=== PATIENT | male | born 1945 | race Caucasian/White ===

== ENCOUNTER 2022-02-07 12:04 | Inpatient (IN) | payer MEDICARE, BC, SELFPAY ==
[2022-02-07] VITALS (9 sets, daily range): BP systolic 128–137; BP diastolic 57–113; PULSE 70–78; RESP 17–26; TEMP 37.2–37.4; O2SAT 95–100; BMI 32.8; BMI 28.8
--- NOTE | 2022-02-07 12:08 | CT_ITS ---
STUDY: CT BRAIN WITHOUT CONTRAST REASON FOR EXAM: Male, 76 years old. mental status [facility] RADIATION DOSAGE (If Supplied By Facility): CTDIvol = ( 44.99 ) mGy, DLP = ( 863.60 ) mGycm TECHNIQUE: Transaxial CT imaging of the brain was performed without administration of intravenous contrast material. Individualized dose optimization techniques were used for this CT. COMPARISON: No relevant priors. FINDINGS: Normal soft tissue structures. Normal calvarium. There is moderate cerebral atrophy with widening of the extra-axial spaces and ventricular dilatation. There are areas of decreased attenuation within the white matter tracts of the supratentorial brain, consistent with microvascular disease changes. Normal basal ganglia and thalami. Normal brainstem. Normal cerebellum. There is no intracranial hemorrhage. There are no findings of an acute ischemic infarction. Normal visualized paranasal sinuses. CT/Brain/Head without Contrast IMPRESSION: Chronic involutional changes of the brain. Electronically Signed: Addy Starr MD at 13:25 EST ,
--- NOTE | 2022-02-07 12:09 | RAD_ITS ---
STUDY: X-RAY CHEST REASON FOR EXAM: Male, 76 years old. MENTAL STATUS CHANGE TECHNIQUE: PA and lateral views of the chest. COMPARISON: None. FINDINGS: Poor inspiration with some bibasilar atelectasis. There is no demonstrated pleural abnormality. There is moderate cardiac enlargement. Normal mediastinum and daniel. There is prominence of the pulmonary hilar arteries and peripheral pulmonary arteries, consistent with congestive heart failure (CHF). Normal visualized aortic arch and descending thoracic aorta. Normal visualized thoracic spine. Normal visualized ribs, clavicles, and shoulders. There is no demonstrated abnormality of the visualized soft tissue structures of the upper abdomen. RAD/Chest PA and Lateral IMPRESSION: Mild congestive heart failure. Electronically Signed: Addy Starr MD at 13:21 EST ,
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
[2022-02-07] MEDS: 0.9% Normal Saline 1,000 ML 150 ML IV ×2 (12:20→19:30)
[2022-02-07 12:30] LABS: Absolute Lymphocyte Count 0.67 X10^3/uL (0.83-4.51); Absolute Neutrophil Count 4.5 X10^3/uL (2.0-7.7); Basophil# 0.04 X10^3/uL; Basophil% 0.7 % (0-1); Eosinophil# 0.06 X10^3/uL; Hematocrit 46.4 % (40-54); Hemoglobin 15.1 g/dL (13.0-16.5); Lymphocyte # 0.67 X10^3/ul (0.83-4.51); Lymphocyte % 11.5 % (19-41); Mean Corp Hgb Conc 32.5 g/dL (32-36); Mean Corpuscular Hgb 28.7 pg (27.0-32.0); Mean Corpuscular Volume 88.2 fL (80-94); Mean Platelet Vol. 10.1 fl (6.2-12.0); Monocyte# 0.49 X10^3/uL; Monocyte% 8.4 % (0-10); NRBC Flagged by Analyzer 0 % (0-5); Neutrophil % 77.4 % (47-70); Platelet Count 194 K/mm3 (150-450); RBC Distribution Width CV 13.2 % (11.6-14.6); Red Blood Count 5.26 M/mm3 (4.6-6.2); White Blood Count 5.8 K/mm3 (4.4-11.0)
[2022-02-07 12:37] LABS: Alcohol, Blood (Medical)-Serum < 3.0 mg/dL
[2022-02-07 12:44] LABS: AST(SGOT) 19 U/L (15-37); Alanine Aminotransfer ALT/SGPT 27 U/L (16-61); Albumin, Serum 3.5 g/dL (3.2-5.0); Alkaline Phosphatase 85 U/L (45-117); Anion Gap 4 (5-15); BUN 12 mg/dL (7-18); BUN/Creat Ratio 9.4 RATIO (10-20); Chloride 100 mmol/L (98-107); Creatinine, Serum 1.27 mg/dL (0.70-1.30); EST Glomerular Filtration Rate 59 mL/min (>60); Est Glom Filt Rate - Afr Amer 71 mL/min (>60); Estimated Creatinine Clearance 60.75 ml/min; Globulin 3.4 g/dL (2.2-4.2); Glucose 165 mg/dL (74-106); Protein, Total 6.9 g/dL (6.4-8.2); Sodium Level 135 mmol/L (136-145); Troponin-I HS (w/2H Reflex) 9 pg/mL (3.0-78.0)
[2022-02-07 13:02] LABS: Mucous, Urine 0 SEEN /hpf (<or=2+); Squamous Epithelial Cells - UA 0 SEEN /hpf (0-5)
[2022-02-07 13:06] LABS: Color, Urine Yellow (Yellow); Glucose, Dipstick 100 mg/dl (Normal); Ketone-Dipstick Negative (Negative); Leukocyte Esterase-Dipstick 25 /ul (Negative); Nitrite-Dipstick Negative (Negative); Occult Blood-Urine 250 /ul (Negative); Protein-Dipstick 30 mg/dl (Negative); Specific Gravity, Urine 1.015 (1.002-1.030); Urine Bilirubin Dipstick Negative (Negative); Urine Clarity Sl. Cloudy (Clear); Urine Urobilinogen Normal (Normal)
[2022-02-07 13:13] LABS: Bacteria 1+ /hpf (None Seen); Red Blood Cells-Urine 25-50 SEEN /hpf (0-5); White Blood Cells 0-5 SEEN /hpf (0-5)
[2022-02-07 13:21] LABS: Amphetamine Urine VISTA NEGATIVE (<1000 ng/mL); Barbiturate Urine VISTA POSITIVE (< 200 ng/mL); Benzodiazepine Urine VISTA NEGATIVE (< 200 ng/mL); Cocaine Urine VISTA NEGATIVE (< 300 ng/mL); Ecstacy Urine VISTA NEGATIVE (< 500 ng/mL); Methadone Urine VISTA NEGATIVE (< 300 ng/mL); PCP Urine VISTA NEGATIVE (< 25 ng/mL); THC Urine VISTA NEGATIVE (< 50 ng/mL); Vista UDS pH Range 6
[2022-02-07 14:21] LABS: Reflex Troponin-HS? (from REC) Y
[2022-02-07 15:23] LABS: Troponin-I HS 14 pg/mL (3.0-78.0)
--- NOTE | 2022-02-07 15:46 | MRI_ITS ---
EXAM: MR HEAD WITHOUT AND WITH INTRAVENOUS CONTRAST CLINICAL INDICATION: Altered mental status TECHNIQUE: Multiplanar and multisequence MR images of the brain were obtained without and with intravenous contrast. This report was created using [employer] report generation technology. CONTRAST: 24ML Clariscan via IV COMPARISON: CT head without contrast 02/07/2022. FINDINGS: BRAIN AND EXTRA-AXIAL SPACES: No diffusion restriction to suspect acute or subacute ischemic infarct. Few T2 FLAIR hyperintensity foci in the white matter of the cerebral hemispheres are chronic white matter ischemic changes. Following IV contrast administration, there are no abnormal enhancing lesions intra-axially and extra-axially. No intra- or extra-axial hemorrhage. No intracranial mass or mass effect. Posterior fossa structures are unremarkable. Ventricles are appropriate for age. No hydrocephalus. Basal cisterns are patent. SELLA: Unremarkable. Normal sella turcica, pituitary gland, infundibular stalk, optic chiasm and hypothalamus. AUDITORY SYSTEM: Unremarkable. The internal auditory canals are patent. BONES/JOINTS: Unremarkable. No discrete lytic or blastic abnormalities. SINUSES: Unremarkable as visualized. Clear. MASTOID AIR CELLS: Unremarkable as visualized. Clear. ORBITS: Unremarkable as visualized. Both globes, extraocular muscles, optic nerves and retrobulbar fat appear unremarkable. VASCULATURE: Unremarkable as visualized. Normal flow voids in the major intracranial circulation. MRI/Brain W/WO Contrast IMPRESSION: 1. No acute findings in the head/brain. 2. Few chronic white matter ischemic changes in both cerebral hemispheres. 3. No abnormal enhancing lesions intra-axially and extra-axially. Electronically Signed: Dennis Luna MD at 10:56 EST ,
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
[2022-02-07 16:33] LABS: Erythrocyte Sedimentation Rate 5 mm/hr (0-20)
[2022-02-07 16:40] LABS: Vitamin B12 484 pg/mL (211-911)
[2022-02-07 16:43] LABS: Thyroid Stim Hormone (TSH) 0.89 uIU/mL (0.358-3.74)
[2022-02-07 16:51] LABS: Hemoglobin A1c 7.4 % (3.8-5.6)
[2022-02-07 16:54] LABS: BNP,B-Type NATRIURETIC PEPTIDE 31.9 pg/mL (0-100)
[2022-02-07 18:29] LABS: Ammonia < 10.0 umol/L (11-32)
--- NOTE | 2022-02-07 18:35 | TELEMED_ITS ---
[facility] Tele[facility] has confirmed receipt of a request for visit. This document confirms receipt of the order initiating the consult. To find the results of the consultation, please view the patient's reports for the scanned Telemed Consult.
[2022-02-07 22:45] LABS: Bedside Glucose 120 mg/dL (74-106)
[2022-02-08] VITALS (10 sets, daily range): BP systolic 110–157; BP diastolic 54–74; PULSE 61–92; RESP 16–18; TEMP 36.9–38.1; O2SAT 92–95
[2022-02-08] MEDS: 0.9% Normal Saline 1,000 ML 150 ML IV ×2 (01:34→08:13)
[2022-02-08 07:06] LABS: Absolute Lymphocyte Count 1.06 X10^3/uL (0.83-4.51); Basophil# 0.02 X10^3/uL; Basophil% 0.4 % (0-1); Hematocrit 38.8 % (40-54); Hemoglobin 13.1 g/dL (13.0-16.5); Lymphocyte # 1.06 X10^3/ul (0.83-4.51); Lymphocyte % 18.8 % (19-41); Mean Corp Hgb Conc 33.8 g/dL (32-36); Mean Corpuscular Hgb 29.8 pg (27.0-32.0); Mean Corpuscular Volume 88.4 fL (80-94); Mean Platelet Vol. 10.5 fl (6.2-12.0); Monocyte# 0.53 X10^3/uL; Monocyte% 9.4 % (0-10); NRBC Flagged by Analyzer 0 % (0-5); Neutrophil % 70.9 % (47-70); Platelet Count 157 K/mm3 (150-450); RBC Distribution Width CV 13.4 % (11.6-14.6); RBC Distribution Width SD 43.9 fl (35.1-43.9); Red Blood Count 4.39 M/mm3 (4.6-6.2); White Blood Count 5.6 K/mm3 (4.4-11.0)
[2022-02-08 07:10] LABS: Bedside Glucose 122 mg/dL (74-106)
[2022-02-08 07:38] LABS: ALB/GLOB Ratio 1.1 RATIO (0.9-2.4); AST(SGOT) 19 U/L (15-37); Alanine Aminotransfer ALT/SGPT 21 U/L (16-61); Albumin, Serum 2.9 g/dL (3.2-5.0); Alkaline Phosphatase 61 U/L (45-117); Anion Gap 6 (5-15); BUN 13 mg/dL (7-18); BUN/Creat Ratio 12.9 RATIO (10-20); Calcium,Total 8.1 mg/dL (8.5-10.1); Chloride 103 mmol/L (98-107); Creatinine, Serum 1.01 mg/dL (0.70-1.30); EST Glomerular Filtration Rate 76 mL/min (>60); Est Glom Filt Rate - Afr Amer 92 mL/min (>60); Estimated Creatinine Clearance 76.39 ml/min; Globulin 2.6 g/dL (2.2-4.2); Glucose 93 mg/dL (74-106); Potassium 3.4 mmol/L (3.5-5.1); Protein, Total 5.5 g/dL (6.4-8.2); Sodium Level 136 mmol/L (136-145)
[2022-02-08] MEDS: Potassium Chloride Oral Tablet 20 MEQ 40 MEQ PO (10:47)
[2022-02-08] MEDS: Enoxaparin 40 MG/0.4 ML Syringe SC (10:48)
[2022-02-08 12:50] LABS: Bedside Glucose 158 mg/dL (74-106)
[2022-02-08] MEDS: Insulin Lispro 100 UNIT/ML INSULN.PEN SC ×2 (13:13→22:03)
--- NOTE | 2022-02-08 15:25 | CHAPLAIN ---
Type of Pastoral Visit _x__ Initial Visit ___ Follow-up Visit ___ On-call Visit ___ General Patient Visit ___ Spiritual Assessment ___ Family Conference ___ Bereavement ___ Rapid Response ___ Code Blue ___ Other (describe below) Pastoral Care Referral From _x__ Patient ___ Family ___ Nurse ___ Physician ___ Waterproofing Mixer ___ Cigar Sorter ___ Other (describe below) Sacrament/Intervention _x__ Active listening ___ Anointing ___ Yazidi ___ Bereavement ___ Communion _x__ Elaine exploration ___ _x__ Life review _x__ Prayer ___ Reconciliation ___ Sacrament of Sick ___ Supportive presence ___ Wedding ___ Other (describe below) Pastoral Comments patient is welcoming, states that he wants to go home now, and that he is from [place]'; pt missed out on Abdiel with being in the hospital; pt just talks briefly about his life and his elaine in God; pt speak about his family issues gives time to talk about his life; pt is a member of a local buddhism in [place] and wants to see if gou;
--- NOTE | 2022-02-08 15:30 | CASEMGMT ---
HARRY CM in to complete CAREY form with as patient is confused. RN SCOUT explained CAREY Form to , voiced understanding. signed CAREY form and filed in chart. provided with copy of signed CAREY form. had no further questions or concerns at this time.
--- NOTE | 2022-02-08 15:48 | PCM.PN.HOSP ---
Subjective Subjective Remains confused today, roughly unchanged from yesterday. No physical complaints. Did spike temperature today. Objective Data Objective Data Vital Signs: Vital Signs Temp Pulse Resp BP Pulse Ox O2 Del Method O2 Flow Rate 100.0 F H 73 18 132/74 H 95 Room Air 2 02/08/22 13:37 02/08/22 15:00 02/08/22 13:37 02/08/22 13:37 02/08/22 13:37 02/08/22 13:37 02/07/22 16:01 Oxygen Flow Rate (L/min) 2 Oxygen Delivery Method Room Air Weight: 108.3 kg Body Mass Index (BMI) 28.8 Intake & Output: Intake and Output for Last 24 Hours 02/06/22 02/07/22 02/08/22 23:59 23:59 23:59 Intake Total 1000 / 1000 2060.0 / 2060.0 Output Total 175 / 175 Balance 825 / 825 2060.0 / 2059.0 Lab / Micro Data Result Diagrams: 02/08/22 04:55 02/08/22 04:55 Labs: Laboratory Results - last 24 hr 02/07/22 12:10: B-Natriuretic Peptide 31.9 02/07/22 12:10: ESR 5 02/07/22 12:10: Hemoglobin A1c 7.4 H 02/07/22 12:10: Vitamin B12 484 02/07/22 14:50: C-React Prot Ext Range 12.30 H, Folate 12.40, TSH 0.89 02/07/22 17:46: Ammonia < 10.0 L 02/07/22 22:25: POC Glucose 120 H 02/08/22 04:55: WBC 5.6, RBC 4.39 L, Hgb 13.1, Hct 38.8 L, MCV 88.4, MCH 29.8, MCHC 33.8, RDW Std Deviation 43.9, RDW Coeff of Bradley 13.4, Plt Count 157, MPV 10.5, Immature Gran % (Auto) 0.500, Neut % (Auto) 70.9 H, Lymph % (Auto) 18.8 L, [place] % (Auto) 9.4, Eos % (Auto) 0.0, Baso % (Auto) 0.4, Absolute Neuts (auto) 4.0, Absolute Lymphs (auto) 1.06, Nucleated RBC % 0 02/08/22 04:55: Sodium 136, Potassium 3.4 L, Chloride 103, Carbon Dioxide 27.0, Anion Gap 6, BUN 13, Creatinine 1.01, Estim Creat Clear Calc 76.39, Est GFR (MDRD) Af Amer 92, Est GFR (MDRD) Non-Af 76, BUN/Creatinine Ratio 12.9, Glucose 93, Calcium 8.1 L, Total Bilirubin 0.40, AST 19, ALT 21, Alkaline Phosphatase 61, Total Protein 5.5 L, Albumin 2.9 L, Globulin 2.6, Albumin/Globulin Ratio 1.1 02/08/22 06:23: POC Glucose 122 H 02/08/22 12:24: POC Glucose 158 H Micro: Microbiology 02/07/22 12:28 Nasal Secretion SARS-CoV-2 & FLU Antigen (Rapid) - Final Radiography Diagnostic Testing: Radiology Impression Brain MRI 02/07/22 15:46 IMPRESSION: 1. No acute findings in the head/brain. 2. Few chronic white matter ischemic changes in both cerebral hemispheres. 3. No abnormal enhancing lesions intra-axially and extra-axially. Electronically Signed: Dennis Luna MD at 10:56 EST , Rhythm Strip Rhythm Strip: Sinus Rhythm Rate: 70 Ectopy: None Physical Exam Const alert Constitutional Narrative: Not oriented, is awake and will answer questions but is confused HEENT normocephalic and head/scalp atraumatic Eyes Eyes Narrative: EOM grossly intact, anicteric Neck supple Resp normal respiratory effort and clear to auscultation bilaterally Cardio regular rate and regular rhythm GI soft to palpation, non-tender and non-distended Extremity Extremity Narrative: No edema appreciated Neuro moves all extremities Neuro Narrative: Has some diffuse tremors, no overt focal deficits Psych Psych Narrative: Cooperative Assessment & Plan Assessment/Plan (1) Altered mental status: PLAN: Plan #Altered mental status Metabolic versus medication induced versus structural Had 1 brief episode on that lasted 30 minutes, and presently remains not oriented and confused but is awake and alert Brain CT only noted chronic changes Ammonia negative ESR within normal limits, CRP 12 B12 within normal limits as is folate and TSH UA with some blood but only mild leuk esterase and bacteria +1 no urinary symptoms, do not think he has a UTI Ethanol negative UDS positive for barbiturates but he does take primidone Is on donepezil so likely has underlying cognitive impairment but unclear to what extent Also takes nortriptyline, primidone, gabapentin?altered mental status could be contributed to polypharmacy though unclear if any of these were changed recently Family concerned as he does have a history of basal cell carcinoma with radiation and has had an chemo MRA was ordered EEG Neuro consult No focal deficits, do not think that this is an acute CVA Glucose was within normal limits on presentation and he was not hypoxic 02/08: Still remains very confused and far from baseline. CRP 12 but lab work-up thus far otherwise unremarkable, MRI only with chronic changes. Awaiting EEG. Did spike temperature, obtaining cultures, may account for his altered mental status given his history of probable mild cognitive impairment as he is on medication for this. UTI seems most likely source, will start Rocephin. Awaiting EEG and neurology results #Type 2 diabetes mellitus A1c 7.4 Holding oral hypoglycemics Glucose checks and sliding scale insulin #DVT ppx: Madhu Dexter MD Charges/Coding Visit Charges Inpatient E&M: 60884 Subs Hosp L2
[2022-02-08 17:15] LABS: Bedside Glucose 135 mg/dL (74-106)
[2022-02-08] MEDS: Ceftriaxone 1 GM/50 ML BAG IV (17:51)
[2022-02-08] MEDS: MELATONIN 10 MG TABLET PO (22:04)
[2022-02-08 22:20] LABS: Bacteria 0 SEEN /hpf (None Seen); Mucous, Urine 0 SEEN /hpf (<or=2+); Red Blood Cells-Urine 0 SEEN /hpf (0-5); Squamous Epithelial Cells - UA 0 SEEN /hpf (0-5); White Blood Cells 0 SEEN /hpf (0-5)
[2022-02-08 22:30] LABS: Color, Urine Straw (Yellow); Glucose, Dipstick Normal (Normal); Ketone-Dipstick Negative (Negative); Leukocyte Esterase-Dipstick Negative /ul (Negative); Nitrite-Dipstick Negative (Negative); Occult Blood-Urine 10 /ul (Negative); Protein-Dipstick Negative (Negative); Specific Gravity, Urine 1.015 (1.002-1.030); Urine Bilirubin Dipstick Negative (Negative); Urine Clarity Clear (Clear); Urine Urobilinogen Normal (Normal)
[2022-02-08 22:36] LABS: Bedside Glucose 150 mg/dL (74-106)
[2022-02-09] VITALS (8 sets, daily range): BP systolic 127–141; BP diastolic 63–83; PULSE 68–78; RESP 16–18; TEMP 36.5–38; O2SAT 93–95
[2022-02-09] MEDS: Insulin Lispro 100 UNIT/ML INSULN.PEN SC ×4 (06:32→21:05)
[2022-02-09 06:55] LABS: Bedside Glucose 151 mg/dL (74-106)
[2022-02-09 07:10] LABS: Absolute Lymphocyte Count 0.65 X10^3/uL (0.83-4.51); Absolute Neutrophil Count 4.8 X10^3/uL (2.0-7.7); Basophil# 0.02 X10^3/uL; Basophil% 0.3 % (0-1); Eosinophil# 0.19 X10^3/uL; Eosinophils% 3.1 % (0-5); Hematocrit 39.6 % (40-54); Lymphocyte # 0.65 X10^3/ul (0.83-4.51); Lymphocyte % 10.8 % (19-41); Mean Corp Hgb Conc 32.8 g/dL (32-36); Mean Corpuscular Hgb 29.1 pg (27.0-32.0); Mean Corpuscular Volume 88.6 fL (80-94); Monocyte# 0.38 X10^3/uL; Monocyte% 6.3 % (0-10); NRBC Flagged by Analyzer 0 % (0-5); Neutrophil # 4.77 X10^3/uL (2.7-7.7); Platelet Count 141 K/mm3 (150-450); RBC Distribution Width CV 13.5 % (11.6-14.6); RBC Distribution Width SD 43.8 fl (35.1-43.9); Red Blood Count 4.47 M/mm3 (4.6-6.2)
[2022-02-09 08:10] LABS: ALB/GLOB Ratio 0.9 RATIO (0.9-2.4); AST(SGOT) 32 U/L (15-37); Alanine Aminotransfer ALT/SGPT 23 U/L (16-61); Albumin, Serum 2.9 g/dL (3.2-5.0); Alkaline Phosphatase 59 U/L (45-117); Anion Gap 9 (5-15); BUN 12 mg/dL (7-18); BUN/Creat Ratio 12.9 RATIO (10-20); Calcium,Total 8.3 mg/dL (8.5-10.1); Chloride 103 mmol/L (98-107); Creatinine, Serum 0.93 mg/dL (0.70-1.30); EST Glomerular Filtration Rate 84 mL/min (>60); Est Glom Filt Rate - Afr Amer 102 mL/min (>60); Estimated Creatinine Clearance 82.96 ml/min; Globulin 3.3 g/dL (2.2-4.2); Glucose 147 mg/dL (74-106); Potassium 3.8 mmol/L (3.5-5.1); Protein, Total 6.2 g/dL (6.4-8.2); Sodium Level 136 mmol/L (136-145)
--- NOTE | 2022-02-09 08:28 | PN.HOSP_ITS ---
Subjective Subjective Remains confused. Endorses a headache but denies any other deficits, was coughing slightly while was in the room but denied shortness of breath Objective Data Objective Data Vital Signs: Vital Signs Temp Pulse Resp BP Pulse Ox O2 Del Method O2 Flow Rate 100.4 F H 72 18 138/63 H 93 Room Air 2 02/09/22 03:01 02/09/22 07:00 02/09/22 03:01 02/09/22 03:01 02/09/22 03:01 02/09/22 03:02 02/07/22 16:01 Oxygen Flow Rate (L/min) 2 Oxygen Delivery Method Room Air Weight: 109.5 kg Body Mass Index (BMI) 28.8 Intake & Output: Intake and Output for Last 24 Hours 02/07/22 02/08/22 02/09/22 23:59 23:59 23:59 Intake Total 1000 / 1000 3320.0 / 3320.0 100 / 100 Output Total 175 / 175 940 / 1265 525 / 525 Balance 825 / 825 2380.0 / 2055.0 -425 / -425 Lab / Micro Data Result Diagrams: 02/09/22 06:30 02/09/22 06:30 Labs: Laboratory Results - last 24 hr 02/08/22 12:24: POC Glucose 158 H 02/08/22 16:20: Urine Color Straw, Urine Clarity Clear, Urine pH 5.0, Ur Specific [place] 1.015, Urine Protein Negative, Urine Glucose (UA) Normal, Urine Ketones Negative, Urine Occult Blood 10 H, Urine Nitrite Negative, Urine Biliru bin Negative, Urine Urobilinogen Normal, Ur Leukocyte Esterase Negative, Urine RBC 0 SEEN, Urine WBC 0 SEEN, Ur Squamous Epith Cells 0 SEEN, Urine Bacteria 0 SEEN, Urine Mucus 0 SEEN 02/08/22 16:54: POC Glucose 135 H 02/08/22 22:02: POC Glucose 150 H 02/09/22 06:30: WBC 6.0, RBC 4.47 L, Hgb 13.0, Hct 39.6 L, MCV 88.6, MCH 29.1, MCHC 32.8, RDW Std Deviation 43.8, RDW Coeff of Bradley 13.5, Plt Count 141 L, MPV 10.0, Immature Gran % (Auto) 0.500, Neut % (Auto) 79.0 H, Lymph % (Auto) 10.8 L, [place] % (Auto) 6.3, Eos % (Auto) 3.1, Baso % (Auto) 0.3, Absolute Neuts (auto) 4. 8, Absolute Lymphs (auto) 0.65 L, Nucleated RBC % 0 02/09/22 06:30: Sodium 136, Potassium 3.8, Chloride 103, Carbon Dioxide 24.0, Anion Gap 9, BUN 12, Creatinine 0.93, Estim Creat Clear Calc 82.96, Est GFR (MDRD) Af Amer 102, Est GFR (MDRD) Non-Af 84, BUN/Creatinine Ratio 12.9, Glucose 147 H, Calcium 8.3 L, Total Bilirubin 0.40, AST 32, ALT 23, Alkaline Phosphatase 59, C-React Prot Ext Range 123.00 H, Total Protein 6.2 L, Albumin 2.9 L, Globulin 3.3, Albumin/Globulin Ratio 0.9 02/09/22 06:31: POC Glucose 151 H Micro: Microbiology 02/07/22 12:28 Nasal Secretion SARS-CoV-2 & FLU Antigen (Rapid) - Final Radiography Diagnostic Testing: Radiology Impression Brain MRI 02/07/22 15:46 IMPRESSION: 1. No acute findings in the head/brain. 2. Few chronic white matter ischemic changes in both cerebral hemispheres. 3. No abnormal enhancing lesions intra-axially and extra-axially. Electronically Signed: Dennis Luna MD at 10:56 EST Reading Location ID and State: [address] [place] [address] , Service support , Rhythm Strip Rhythm Strip: Sinus Rhythm Rate: 70 Ectopy: None Physical Exam Const alert Constitutional Narrative: Knew the year was 2021 but not where he was, awake and alert HEENT normocephalic and head/scalp atraumatic Eyes Eyes Narrative: EOM grossly intact, anicteric Neck supple Resp normal respiratory effort and clear to auscultation bilaterally Cardio regular rate and regular rhythm GI soft to palpation, non-tender and non-distended Extremity Extremity Narrative: No edema appreciated Neuro moves all extremities Neuro Narrative: Has some diffuse tremors, no overt focal deficits Psych Psych Narrative: Cooperative Assessment & Plan Assessment/Plan (1) Altered mental status: PLAN: Plan #Altered mental status Metabolic versus medication induced versus structural Had 1 brief episode on that lasted 30 minutes, and presently remains not oriented and confused but is awake and alert Brain CT only noted chronic changes Ammonia negative ESR within normal limits, CRP 12 B12 within normal limits as is folate and TSH UA with some blood but only mild leuk esterase and bacteria +1 no urinary symptoms, do not think he has a UTI Ethanol negative UDS positive for barbiturates but he does take primidone Is on donepezil so likely has underlying cognitive impairment but unclear to what extent Also takes nortriptyline, primidone, gabapentin?altered mental status could be contributed to polypharmacy though unclear if any of these were changed recently Family concerned as he does have a history of basal cell carcinoma with radiation and has had an chemo MRA was ordered EEG Neuro consult No focal deficits, do not think that this is an acute CVA Glucose was within normal limits on presentation and he was not hypoxic 02/08: Still remains very confused and far from baseline. CRP 12 but lab work- up thus far otherwise unremarkable, MRI only with chronic changes. Awaiting EEG. Did spike temperature, obtaining cultures, may account for his altered mental status given his history of probable mild cognitive impairment as he is on medication for this. UTI seems most likely source, will start Rocephin. Awaiting EEG and neurology results 02/09: Still spiking temperatures despite antibiotics. Cultures pending, given cough noted today we will get respiratory panel. If negative may need to broaden antibiotic coverage pending culture results. CRP was 12.3 yesterday and is 123 today, will need to continue to trend this. Awaiting EEG and neurology evaluation #Type 2 diabetes mellitus A1c 7.4 Holding oral hypoglycemics Glucose checks and sliding scale insulin #DVT ppx: Madhu Dexter MD Charges/Coding Visit Charges Inpatient E&M: 02142 Subs Hosp L2
--- NOTE | 2022-02-09 08:35 | NURSING ---
Emergency documentation starting now.
[2022-02-09] MEDS: Acetaminophen 500 MG Tablet 1000 MG PO (08:43)
[2022-02-09] MEDS: Ceftriaxone 1 GM/50 ML BAG IV (09:30)
[2022-02-09] MEDS: Enoxaparin 40 MG/0.4 ML Syringe SC (09:33)
[2022-02-09] MEDS: 0.9% Saline Lock 10 ML Syringe IV ×2 (11:27→15:28)
[2022-02-09 11:51] LABS: Bedside Glucose 185 mg/dL (74-106)
--- NOTE | 2022-02-09 13:46 | CASEMGMT ---
RN CM assessment deferred at this time. Patient is confused and no family at bedside. RN CM to attempt again at later time.
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
--- NOTE | 2022-02-09 14:34 | PCM.RX.CS ---
Consult Pharmacy has been consulted to manage selected antiobiotic: Vancomycin Type of Consult: New start Suspected Infection: Meningitis Labs: Sodium 136 mmol/L (136-145) 02/09/22 06:30 Potassium 3.8 mmol/L (3.5-5.1) 02/09/22 06:30 Chloride 103 mmol/L (98-107) 02/09/22 06:30 Carbon Dioxide 24.0 mmol/L (21.0-32.0) 02/09/22 06:30 Anion Gap 9 (5-15) 02/09/22 06:30 BUN 12 mg/dL (7-18) 02/09/22 06:30 Creatinine 0.93 mg/dL (0.70-1.30) 02/09/22 06:30 Est GFR (MDRD) Af Amer 102 mL/min (>60) 02/09/22 06:30 Est GFR (MDRD) Non-Af 84 mL/min (>60) 02/09/22 06:30 BUN/Creatinine Ratio 12.9 RATIO (10-20) 02/09/22 06:30 Glucose 147 mg/dL (74-106) H 02/09/22 06:30 Microbiology: Microbiology 02/08/22 16:20 Urine, Clean Catch Urine Culture - Preliminary Culture exhibits no growth. 02/07/22 12:28 Nasal Secretion SARS-CoV-2 & FLU Antigen (Rapid) - Final Pharmacy Plan for Drug Dosing: NEW START IV VANCOMYCIN Consulting Physician: ARIAN Indication: POSSIBLE MENINGITIS Goal Trough: 15-20 MG/DL SrCr: 0.93 MG/DL CrCl: 83 ML/MIN Comments: LOADING DOSE OF 2000MG GIVEN @ 1416 Vancomycin Dose: WILL START 1750MG Q12 02/10 @ 0200 AND GET A TROUGH PRIOR TO 4TH TOTAL DOSE. Pending Level: 02/11/22 @ 0130 Pharmacy Service will continue to monitor and adjust dosing as required.
[2022-02-09 17:01] LABS: Bedside Glucose 190 mg/dL (74-106)
[2022-02-09] MEDS: MELATONIN 10 MG TABLET PO (21:06)
[2022-02-09] MEDS: Gabapentin 300 MG Capsule PO (21:06)
[2022-02-09] MEDS: Primidone 50 MG Tablet 100 MG PO (21:06)
[2022-02-09 23:15] LABS: Bedside Glucose 197 mg/dL (74-106)
[2022-02-10] VITALS (9 sets, daily range): BP systolic 142–148; BP diastolic 71–96; PULSE 60–76; RESP 16–18; TEMP 36.6–37; O2SAT 94–97
--- NOTE | 2022-02-10 00:05 | RAD_ITS ---
PROCEDURE: Fluoroscopic guided Lumbar Puncture. INDICATION: Male, 76 years old. Encephalitis/meningitis PHYSICIAN: Ha Amador MEDICATIONS: 1% lidocaine administered subcutaneously for local anesthesia. ACCESS SITE: Lower posterior back. NEEDLE: 22-gauge spinal needle. SPECIMEN: Approximately 17 mL CSF fluid. FLUOROSCOPY TIME (if supplied): 17 seconds. COMPLICATIONS: None immediate. TECHNIQUE: The risks, benefits, and alternatives to the procedure were explained to the patient''s as the patient is altered and unresponsive. The specific risks of bleeding, infection, and neurovascular injury were detailed and accepted. Witnessed informed consent was obtained. The patient was placed on the fluoroscopic table in the prone position. The level for needle entry was determined and marked. The overlying skin was cleaned and prepped in the usual sterile fashion. Approximately 5 cc of 1% lidocaine was administered subcutaneously for local anesthesia. Under fluoroscopic guidance a 22-gauge spinal needle was advanced. The thecal sac was entered at the L3-L4 vertebral level. The inner stylet was removed. There was spontaneous flow of clear CSF fluid. The patient was placed in a reversed Trendelenburg position. Approximately 17 mL of cerebrospinal fluid was collected using gravity. The specimen was collected and submitted to the laboratory for further evaluation. The needle was withdrawn. Hemostasis was achieved and a sterile dressing placed. The patient tolerated the procedure well without any immediate complications. The patient was returned to the floor in stable condition. Please note that periodic x-ray fluoroscopy guidance was utilized during this study but last image confirming needle placement was not saved due to technical reasons. RAD/Dx Lumbar Puncture w/IMG Guide IMPRESSION: Successful fluoroscopic-guided lumbar puncture. Laboratory results are pending. Electronically Signed: Ha Amador, at 13:08 EST ,
[2022-02-10] MEDS: Acetaminophen 325 MG Tablet 650 MG PO ×2 (02:19→08:27)
--- NOTE | 2022-02-10 04:44 | PCM.HOSP.N ---
Hospitalist Note Reported as influenza A positive, tamiflu added.
[2022-02-10 05:08] LABS: Absolute Lymphocyte Count 0.51 X10^3/uL (0.83-4.51); Absolute Neutrophil Count 2.5 X10^3/uL (2.0-7.7); Basophil# 0.01 X10^3/uL; Basophil% 0.3 % (0-1); Eosinophil# 0.03 X10^3/uL; Eosinophils% 0.9 % (0-5); Hematocrit 37.6 % (40-54); Hemoglobin 12.6 g/dL (13.0-16.5); Lymphocyte # 0.51 X10^3/ul (0.83-4.51); Lymphocyte % 15.3 % (19-41); Mean Corp Hgb Conc 33.5 g/dL (32-36); Mean Corpuscular Volume 86.4 fL (80-94); Mean Platelet Vol. 9.8 fl (6.2-12.0); Monocyte# 0.27 X10^3/uL; Monocyte% 8.1 % (0-10); NRBC Flagged by Analyzer 0 % (0-5); Neutrophil # 2.51 X10^3/uL (2.7-7.7); Neutrophil % 75.1 % (47-70); POSITIVE DIFFERENTIAL YES; Platelet Count 139 K/mm3 (150-450); RBC Distribution Width CV 13.4 % (11.6-14.6); RBC Distribution Width SD 42.7 fl (35.1-43.9); Red Blood Count 4.35 M/mm3 (4.6-6.2); White Blood Count 3.3 K/mm3 (4.4-11.0)
[2022-02-10 05:11] LABS: Differential Indicated SCAN CRITERIA MET
[2022-02-10 05:20] LABS: International Normalized Ratio 1.2; Prothrombin Time (Protime)PT. 14.7 SECONDS (11.7-14.9)
[2022-02-10 05:21] LABS: Partial Thromboplast Time 32.4 Seconds (24.1-36.2)
[2022-02-10] MEDS: 0.9% Saline Lock 10 ML Syringe IV ×2 (05:41→08:37)
[2022-02-10 06:06] LABS: ALB/GLOB Ratio 0.8 RATIO (0.9-2.4); AST(SGOT) 44 U/L (15-37); Alanine Aminotransfer ALT/SGPT 37 U/L (16-61); Albumin, Serum 2.6 g/dL (3.2-5.0); Alkaline Phosphatase 56 U/L (45-117); Anion Gap 6 (5-15); BUN 11 mg/dL (7-18); Calcium,Total 8.1 mg/dL (8.5-10.1); Chloride 104 mmol/L (98-107); Creatinine, Serum 0.84 mg/dL (0.70-1.30); EST Glomerular Filtration Rate 94 mL/min (>60); Est Glom Filt Rate - Afr Amer 114 mL/min (>60); Estimated Creatinine Clearance 91.85 ml/min; Globulin 3.2 g/dL (2.2-4.2); Glucose 182 mg/dL (74-106); Potassium 3.7 mmol/L (3.5-5.1); Protein, Total 5.8 g/dL (6.4-8.2); Sodium Level 136 mmol/L (136-145)
[2022-02-10 06:10] LABS: Platelet Estimate SLT DEC (ADEQ)
[2022-02-10] MEDS: Insulin Lispro 100 UNIT/ML INSULN.PEN SC ×4 (06:51→21:18)
[2022-02-10 07:25] LABS: Bedside Glucose 187 mg/dL (74-106)
[2022-02-10] MEDS: Oseltamivir Phosphate 75 MG Capsule PO ×2 (08:29→21:17)
[2022-02-10] MEDS: Lidocaine 2% (5ml sdv) 5 ML VIAL.MPF INFILT (09:40)
--- NOTE | 2022-02-10 10:15 | CYSPIN_PTH ---
PATIENT: WHITNEY HERNANDEZ LOC: PCU U#:[id number] AGE/SX: 76/M ROOM: [facility] RE02/08/[address]: Dr. Wendy Mims MD : 1945 BED: 1 DIS: 02/15/2022 SPEC #: [id number] RECD: 02/10/22 11:48 STATUS: NATHALIE RERigoberto #: [id number] CARROLL: 02/10/22 10:[address]: Barbara Dexter DEPT: CYTOLOGY RECD BY: Maddie Masters ENTERED: 02/10/22 11:49 SP TYPE: CYSPIN FL OTHR DR: Dr. Mickey Be MD Tissues: Cerebrospinal Fluid Procedures: Pap Stain (control) Special Stain Group II Cytospin Fluid HEADER OPERATION: Lumbar puncture PRE-OP DIAGNOSIS: Encephalopathy TISSUE SUBMITTED: Cerebrospinal fluid for cytology DIAGNOSIS CYTOLOGY Cerebrospinal fluid for cytology (cytospin): Negative for malignant cells. See comment. SJ:nathalie 02/11/2022 COMMENT Clinical correlation and appropriate follow up are necessary. CYTOLOGY STUDY Slides are reviewed. CYTOLOGY GROSS Received is 4 ml of clear colorless fluid labeled with the patient's name and and designated per the requisition as CSF. Submitted for cytology preparation. / nathalie 02/10/2022 TC:4 CPT: 30942
[2022-02-10 10:44] LABS: Cytology, Body Fluid / CSF SEE PATHOLOGY REPORT
[2022-02-10 11:59] LABS: Glucose Spinal Fluid 106 mg/dL (40-75)
[2022-02-10 12:12] LABS: Body Fluid Mononuclear WBC # 0.001 10^3/uL
[2022-02-10 12:30] LABS: Pathologist Review Reviewed
[2022-02-10 12:50] LABS: Bedside Glucose 175 mg/dL (74-106)
[2022-02-10 13:25] LABS: Appearance CSF (character) CLEAR (Clear); Auto B Fluid Analyzer BKGD Ct COUNTS W/IN LIMITS (W/IN LIMITS); CSF Color COLORLESS (Colorless); Tested Tube # 1
[2022-02-10 13:28] LABS: RBC Count, Spinal Fluid 5 /mm-3 (None seen)
[2022-02-10 13:29] LABS: White Count, CSF 0 /mm-3 (0 - 5)
[2022-02-10 13:30] LABS: Body Fluid QC Type(s) BF1Q
--- NOTE | 2022-02-10 13:30 | PCM.PN.ID ---
Physical Exam Narrative LP done this AM, mild headache, no fever, feeling ok. Const alert and no apparent distress Resp normal air movement and clear to auscultation bilaterally Cardio regular rate and regular rhythm GI soft to palpation, non-tender and non-distended Skin no rashes or lesions noted ID ID: Route of nutrition/ use of supplements: [] Nutritional Intake: [] IV Site: [] Winter Catheter: [] Assessment & Plan Assessment/Plan (1) Acute encephalopathy: PLAN: Associated with fever, hypoxia, lymphopenia. Resp pcr panel (+) flu. UA neg for wbcs on 02/07 or 02/08. Bcx and ucx neg so far. Presentation/exam not consistent with bacterial meningitis; was put on amp/ceftriaxone q12/vanc/acyclovir by primary team. CSF now shows wbc 0, so will stop all of these. On tamiflu for flu, would continue. Will follow (2) Fever: (3) Hypoxia:
--- NOTE | 2022-02-10 13:59 | PN.HOSP_ITS ---
Subjective Subjective Still confused but slightly more clear today, LP done this morning. Overnight did have respiratory panel result positive for flu A. Infectious disease discontinued ampicillin, Rocephin, Vanco, acyclovir as CSF showed 0 WBCs. Objective Data Objective Data Vital Signs: Vital Signs Temp Pulse Resp BP Pulse Ox O2 Del Method O2 Flow Rate 97.9 F 60 16 148/81 H 97 Room Air 2 02/10/22 12:08 02/10/22 12:08 02/10/22 12:08 02/10/22 12:08 02/10/22 12:08 02/10/22 12:08 02/07/22 16:01 Oxygen Flow Rate (L/min) 2 Oxygen Delivery Method Room Air Weight: 108.5 kg Body Mass Index (BMI) 28.8 Intake & Output: Intake and Output for Last 24 Hours 02/08/22 02/09/22 02/10/22 23:59 23:59 23:59 Intake Total 3320.0 / 3320.0 2124.8 / 2124.8 1002.4 / 1002.4 Output Total 940 / 1265 1075 / 1075 200 / 200 Balance 2380.0 / 2055.0 1049.8 / 1049.8 802.4 / 802.4 Lab / Micro Data Result Diagrams: 02/10/22 04:50 02/10/22 04:50 Labs: Laboratory Results - last 24 hr 02/09/22 16:36: POC Glucose 190 H 02/09/22 20:55: POC Glucose 197 H 02/10/22 04:50: WBC 3.3 L, RBC 4.35 L, Hgb 12.6 L, Hct 37.6 L, MCV 86.4, MCH 29.0, MCHC 33.5, RDW Std Deviation 42.7, RDW Coeff of Bradley 13.4, Plt Count 139 L, MPV 9.8, Immature Gran % (Auto) 0.300, Neut % (Auto) 75.1 H, Lymph % (Auto) 15.3 L, [place] % (Auto) 8.1, Eos % (Auto) 0.9, Baso % (Auto) 0.3, Absolute Neuts (auto) 2.5, Absolute Lymphs (auto) 0.51 L, Nucleated RBC % 0, Diff Path Review Reviewed, Platelet Estimate SLT 02/10/22 04:50: Sodium 136, Potassium 3.7, Chloride 104, Carbon Dioxide 26.0, Anion Gap 6, BUN 11, Creatinine 0.84, Estim Creat Clear Calc 91.85, Est GFR (MDRD) Af Amer 114, Est GFR (MDRD) Non-Af 94, BUN/Creatinine Ratio 13.0, Glucose 182 H, Calcium 8.1 L, Total Bilirubin 0.30, AST 44 H, ALT 37, Alkaline Phosphatase 56, C-React Prot Ext Range 117.00 H, Total Protein 5.8 L, Albumin 2.6 L, Globulin 3.2, Albumin/Globulin Ratio 0.8 L 02/10/22 04:50: PT 14.7, INR 1.2, APTT 32.4 02/10/22 06:51: POC Glucose 187 H 02/10/22 10:00: Fld Polynuclear WBCs # 0.000, Fld Polynuclear WBCs % 0.0, Fluid Mononuclear WBCs 0.001, Fld Mononuclear WBCs % 100.0, CSF Appearance CLEAR, CSF Color COLORLESS, CSF WBC 0, CSF RBC 5 H, CSF Cell Count Tube # 1, CSF Total Cell Counted TNP, CSF Comment May follow 02/10/22 10:00: CSF Glucose 106 H, CSF Total Protein 80.0 H 02/10/22 12:24: POC Glucose 175 H Micro: Microbiology 02/10/22 10:00 Csf, Spinal Fluid Gram Stain - Final 02/08/22 16:20 Urine, Clean Catch Urine Culture - Final Culture exhibits no growth. 02/09/22 10:10 Mucosa - Nasopharyngeal Respiratory Panel (PCR) - Final Influenza A (Subtype H3) 02/07/22 12:28 Nasal Secretion SARS-CoV-2 & FLU Antigen (Rapid) - Final Radiography Diagnostic Testing: Radiology Impression Lumbar Puncture Fluoroscopy 02/10/22 00:05 IMPRESSION: Successful fluoroscopic-guided lumbar puncture. Laboratory results are pending. Electronically Signed: Ha Amador, at 13:08 EST , Rhythm Strip Rhythm Strip: Sinus Rhythm Rate: 70 Ectopy: None Physical Exam Const alert Constitutional Narrative: Confusion slightly improving HEENT normocephalic and head/scalp atraumatic Eyes Eyes Narrative: EOM grossly intact, anicteric Neck supple Resp normal respiratory effort and clear to auscultation bilaterally Cardio regular rate and regular rhythm GI soft to palpation, non-tender and non-distended Extremity Extremity Narrative: No edema appreciated Neuro moves all extremities Neuro Narrative: Has some diffuse tremors, no overt focal deficits Psych Psych Narrative: Cooperative Assessment & Plan Assessment/Plan (1) Altered mental status: PLAN: Plan #Altered mental status Metabolic versus medication induced versus structural Had 1 brief episode on that lasted 30 minutes, and presently remains not oriented and confused but is awake and alert Brain CT only noted chronic changes Ammonia negative ESR within normal limits, CRP 12 B12 within normal limits as is folate and TSH UA with some blood but only mild leuk esterase and bacteria +1 no urinary symptoms, do not think he has a UTI Ethanol negative UDS positive for barbiturates but he does take primidone Is on donepezil so likely has underlying cognitive impairment but unclear to what extent Also takes nortriptyline, primidone, gabapentin?altered mental status could be contributed to polypharmacy though unclear if any of these were changed recently Family concerned as he does have a history of basal cell carcinoma with radiation and has had an chemo MRA was ordered EEG Neuro consult No focal deficits, do not think that this is an acute CVA Glucose was within normal limits on presentation and he was not hypoxic 02/08: Still remains very confused and far from baseline. CRP 12 but lab work- up thus far otherwise unremarkable, MRI only with chronic changes. Awaiting EEG. Did spike temperature, obtaining cultures, may account for his altered mental status given his history of probable mild cognitive impairment as he is on medication for this. UTI seems most likely source, will start Rocephin. Awaiting EEG and neurology results 02/09: Still spiking temperatures despite antibiotics. Cultures pending, given cough noted today we will get respiratory panel. If negative may need to broaden antibiotic coverage pending culture results. CRP was 12.3 yesterday and is 123 today, will need to continue to trend this. Awaiting EEG and neurology evaluation 02/10: Yesterday spoke with neurology and it was noted that his EEG was abnormal, given that with his significant spike in CRP as well as his fevers and normal cultures with complaints of headache neurology recommended LP and empiric antibiotics and acyclovir. ID also consulted. Overnight his respiratory panel resulted with flu a and he was placed on Tamiflu. CSF showed 0 white blood cells so antibiotics were stopped by infectious disease and they recommended continuing Tamiflu. Given his remarkably abnormal EEG, if he does not continue to improve or worsens neurology had recommended repeat EEG. We will assess in the a.m. and repeat EEG if necessary. Tremors are better back on primidone and Neurontin. #Type 2 diabetes mellitus A1c 7.4 Holding oral hypoglycemics Glucose checks and sliding scale insulin #DVT ppx: Lovenox has been held for LP, SCDs Barbara Dexter MD Charges/Coding Visit Charges Inpatient E&M: 44167 Subs Hosp L2
--- NOTE | 2022-02-10 14:00 | CASEMGMT ---
RN CM called Bianka for initial transition planning/care coordination assessment. RN SCOUT introduced self and role at [facility]. Patient is currently confused and unable to participate in assessment. willing to participate in assessment and is able to answer all questions appropriately. Care providers, pharmacy, and demographics verified. wishes for patient to discharge to daughters home, will monitor for HHC. states she has no further needs or concerns at this time. CM to follow for discharge planning needs that may arise. PCP: Dr. Moore in [place] Specialists: patient follows with neurologist in [place] Preferred Pharmacy: [facility] Insurance: [place] [employer] Prescription Benefit: yes Living Will/HPOA: none LNOK: , daughter Living Arrangements: Patient lives with in [place]. Patient will be staying with daughter in a 2 story home with bed and bath on first floor for patient. 2 steps to enter the home. Patient was independent prior to current illness Transportation: Self and DME/HHC: Patient has glucometer and supplies at home. No previous HHC or SNF. Disposition Plan: Patient to discharge home with family support and follow-up plans in place. Will monitor for HHC. Lani RAINES, RN, CM
[2022-02-10 20:01] LABS: Bedside Glucose 243 mg/dL (74-106)
[2022-02-10] MEDS: MELATONIN 10 MG TABLET PO (21:17)
[2022-02-10] MEDS: Gabapentin 300 MG Capsule PO (21:17)
[2022-02-10] MEDS: Primidone 50 MG Tablet 100 MG PO (21:18)
[2022-02-11] VITALS (9 sets, daily range): BP systolic 120–146; BP diastolic 57–91; PULSE 57–72; RESP 16–18; TEMP 36.6–36.8; O2SAT 94–97
[2022-02-11 01:10] LABS: Bedside Glucose 159 mg/dL (74-106)
[2022-02-11 07:08] LABS: Absolute Lymphocyte Count 0.75 X10^3/uL (0.83-4.51); Absolute Neutrophil Count 1.4 X10^3/uL (2.0-7.7); Basophil# 0.02 X10^3/uL; Basophil% 0.8 % (0-1); Eosinophil# 0.05 X10^3/uL; Hematocrit 39.6 % (40-54); Lymphocyte # 0.75 X10^3/ul (0.83-4.51); Lymphocyte % 30.5 % (19-41); Mean Corp Hgb Conc 32.8 g/dL (32-36); Mean Corpuscular Hgb 28.6 pg (27.0-32.0); Mean Corpuscular Volume 87.2 fL (80-94); Mean Platelet Vol. 10.2 fl (6.2-12.0); Monocyte# 0.28 X10^3/uL; Monocyte% 11.4 % (0-10); NRBC Flagged by Analyzer 0 % (0-5); Neutrophil # 1.35 X10^3/uL (2.7-7.7); Neutrophil % 54.9 % (47-70); Platelet Count 169 K/mm3 (150-450); RBC Distribution Width CV 13.3 % (11.6-14.6); RBC Distribution Width SD 42.9 fl (35.1-43.9); Red Blood Count 4.54 M/mm3 (4.6-6.2); White Blood Count 2.5 K/mm3 (4.4-11.0)
[2022-02-11 07:30] LABS: Bedside Glucose 146 mg/dL (74-106)
[2022-02-11 07:42] LABS: ALB/GLOB Ratio 0.8 RATIO (0.9-2.4); AST(SGOT) 40 U/L (15-37); Alanine Aminotransfer ALT/SGPT 49 U/L (16-61); Albumin, Serum 2.7 g/dL (3.2-5.0); Alkaline Phosphatase 59 U/L (45-117); Anion Gap 7 (5-15); BUN 11 mg/dL (7-18); BUN/Creat Ratio 13.5 RATIO (10-20); Calcium,Total 8.2 mg/dL (8.5-10.1); Chloride 104 mmol/L (98-107); Creatinine, Serum 0.81 mg/dL (0.70-1.30); EST Glomerular Filtration Rate 98 mL/min (>60); Est Glom Filt Rate - Afr Amer 119 mL/min (>60); Estimated Creatinine Clearance 95.25 ml/min; Globulin 3.4 g/dL (2.2-4.2); Glucose 158 mg/dL (74-106); Potassium 3.8 mmol/L (3.5-5.1); Protein, Total 6.1 g/dL (6.4-8.2); Sodium Level 138 mmol/L (136-145)
[2022-02-11] MEDS: 0.9% Saline Lock 10 ML Syringe IV (08:28)
[2022-02-11] MEDS: Oseltamivir Phosphate 75 MG Capsule PO ×2 (08:28→21:00)
[2022-02-11 11:27] LABS: Pathologist Review Reviewed
[2022-02-11] MEDS: Insulin Lispro 100 UNIT/ML INSULN.PEN SC ×3 (11:57→20:59)
[2022-02-11 13:20] LABS: Bedside Glucose 211 mg/dL (74-106)
--- NOTE | 2022-02-11 16:10 | PCM.PN.HOSP ---
Subjective Subjective Is more awake and alert today still somewhat struggling with confusion but much clear. Off of empiric antibiotics for meningitis. Denies chest pain or shortness of breath, does have slight cough Objective Data Objective Data Vital Signs: Vital Signs Temp Pulse Resp BP Pulse Ox O2 Del Method O2 Flow Rate 97.8 F 67 16 136/82 H 97 Room Air 2 02/11/22 14:04 02/11/22 15:00 02/11/22 14:04 02/11/22 14:04 02/11/22 14:04 02/11/22 14:04 02/07/22 16:01 Oxygen Flow Rate (L/min) 2 Oxygen Delivery Method Room Air Weight: 109.5 kg Body Mass Index (BMI) 28.8 Intake & Output: Intake and Output for Last 24 Hours 02/09/22 02/10/22 02/11/22 23:59 23:59 23:59 Intake Total 2124.8 / 2124.8 1532.4 / 1532.4 400 / 400 Output Total 1075 / 1075 1070 / 1070 200 / 200 Balance 1049.8 / 1049.8 462.4 / 462.4 200 / 200 Lab / Micro Data Result Diagrams: 02/11/22 06:15 02/11/22 06:15 Labs: Laboratory Results - last 24 hr 02/10/22 10:00: CSF Comment Reviewed 02/10/22 10:00: Miscellaneous Cytology SEE PATHOLOGY REPORT 02/10/22 18:34: POC Glucose 243 H 02/10/22 21:16: POC Glucose 159 H 02/11/22 06:15: WBC 2.5 L, RBC 4.54 L, Hgb 13.0, Hct 39.6 L, MCV 87.2, MCH 28.6, MCHC 32.8, RDW Std Deviation 42.9, RDW Coeff of Bradley 13.3, Plt Count 169, MPV 10.2, Immature Gran % (Auto) 0.400, Neut % (Auto) 54.9, Lymph % (Auto) 30.5, [place] % (Auto) 11.4 H, Eos % (Auto) 2.0, Baso % (Auto) 0.8, Absolute Neuts (auto) 1.4 L, Absolute Lymphs (auto) 0.75 L, Nucleated RBC % 0 02/11/22 06:15: Sodium 138, Potassium 3.8, Chloride 104, Carbon Dioxide 27.0, Anion Gap 7, BUN 11, Creatinine 0.81, Estim Creat Clear Calc 95.25, Est GFR (MDRD) Af Amer 119, Est GFR (MDRD) Non-Af 98, BUN/Creatinine Ratio 13.5, Glucose 158 H, Calcium 8.2 L, Total Bilirubin 0.30, AST 40 H, ALT 49, Alkaline Phosphatase 59, C-React Prot Ext Range 53.80 H, Total Protein 6.1 L, Albumin 2.7 L, Globulin 3.4, Albumin/Globulin Ratio 0.8 L 02/11/22 06:56: POC Glucose 146 H 02/11/22 11:55: POC Glucose 211 H Micro: Microbiology 02/10/22 10:00 Csf, Spinal Fluid Gram Stain - Final 02/10/22 10:00 Csf, Spinal Fluid CSF Culture - Preliminary No growth in 24 hours. Final to follow. 02/08/22 17:01 Blood Culture (Wb) - Anticubital Right Blood Culture - Preliminary No growth in 48 hours. 02/08/22 16:57 Blood Culture (Wb) - Left Hand Blood Culture - Preliminary No growth in 48 hours. 02/08/22 16:20 Urine, Clean Catch Urine Culture - Final Culture exhibits no growth. 02/09/22 10:10 Mucosa - Nasopharyngeal Respiratory Panel (PCR) - Final Influenza A (Subtype H3) 02/07/22 12:28 Nasal Secretion SARS-CoV-2 & FLU Antigen (Rapid) - Final Rhythm Strip Rhythm Strip: Sinus Rhythm Rate: 70 Ectopy: None Physical Exam Const alert Constitutional Narrative: Confusion is improving, answers most questions appropriately HEENT normocephalic and head/scalp atraumatic Eyes Eyes Narrative: EOM grossly intact, anicteric Neck supple Resp normal respiratory effort and clear to auscultation bilaterally Cardio regular rate and regular rhythm GI soft to palpation, non-tender and non-distended Extremity Extremity Narrative: No edema appreciated Neuro moves all extremities Neuro Narrative: Has some diffuse tremors, no overt focal deficits Psych Psych Narrative: Cooperative Assessment & Plan Assessment/Plan (1) Altered mental status: PLAN: Plan #Altered mental status Metabolic versus medication induced versus structural Had 1 brief episode on that lasted 30 minutes, and presently remains not oriented and confused but is awake and alert Brain CT only noted chronic changes Ammonia negative ESR within normal limits, CRP 12 B12 within normal limits as is folate and TSH UA with some blood but only mild leuk esterase and bacteria +1 no urinary symptoms, do not think he has a UTI Ethanol negative UDS positive for barbiturates but he does take primidone Is on donepezil so likely has underlying cognitive impairment but unclear to what extent Also takes nortriptyline, primidone, gabapentin?altered mental status could be contributed to polypharmacy though unclear if any of these were changed recently Family concerned as he does have a history of basal cell carcinoma with radiation and has had an chemo MRA was ordered EEG Neuro consult No focal deficits, do not think that this is an acute CVA Glucose was within normal limits on presentation and he was not hypoxic 02/08: Still remains very confused and far from baseline. CRP 12 but lab work-up thus far otherwise unremarkable, MRI only with chronic changes. Awaiting EEG. Did spike temperature, obtaining cultures, may account for his altered mental status given his history of probable mild cognitive impairment as he is on medication for this. UTI seems most likely source, will start Rocephin. Awaiting EEG and neurology results 02/09: Still spiking temperatures despite antibiotics. Cultures pending, given cough noted today we will get respiratory panel. If negative may need to broaden antibiotic coverage pending culture results. CRP was 12.3 yesterday and is 123 today, will need to continue to trend this. Awaiting EEG and neurology evaluation 02/10: Yesterday spoke with neurology and it was noted that his EEG was abnormal, given that with his significant spike in CRP as well as his fevers and normal cultures with complaints of headache neurology recommended LP and empiric antibiotics and acyclovir. ID also consulted. Overnight his respiratory panel resulted with flu a and he was placed on Tamiflu. CSF showed 0 white blood cells so antibiotics were stopped by infectious disease and they recommended continuing Tamiflu. Given his remarkably abnormal EEG, if he does not continue to improve or worsens neurology had recommended repeat EEG. We will assess in the a.m. and repeat EEG if necessary. Tremors are better back on primidone and Neurontin. 02/11: Mental status continues to improve however he still is slow to answer questions and there are some things he cannot answer, definitely not back at baseline and given conversation with neurology previously repeat EEG obtained. If this is normal and patient doing well tomorrow can likely work on discharge planning. All inflammatory markers are improving. Final spinal fluid studies are pending however #Type 2 diabetes mellitus A1c 7.4 Holding oral hypoglycemics Glucose checks and sliding scale insulin #DVT ppx: Lovenox has been held for LP, SCDs Barbara Dexter MD Charges/Coding Visit Charges Inpatient E&M: 19902 Subs Hosp L2
--- NOTE | 2022-02-11 16:52 | EKG12_ITS ---
Test Reason : ABNL RYTHUM Blood Pressure : / mmHG Vent. Rate : 069 BPM Atrial Rate : 069 BPM P-R Int : 144 ms QRS Dur : 088 ms QT Int : 422 ms P-R-T Axes : 053 026 060 degrees QTc Int : 452 ms Normal sinus rhythm with sinus arrhythmia Low voltage QRS Borderline ECG Confirmed by EL PRASAD, KRYSTIN ([id number]), legal editor JULIANA AMBRIZ ([id number]) on 02/17/2022 9:54:34 AM Referred By: MARY Confirmed By:KRYSTIN GALLEGOS MD
[2022-02-11 17:48] LABS: Magnesium 2.1 mg/dL (1.6-2.6)
[2022-02-11 19:50] LABS: Bedside Glucose 180 mg/dL (74-106)
[2022-02-11] MEDS: Primidone 50 MG Tablet 100 MG PO (21:00)
[2022-02-11] MEDS: Gabapentin 300 MG Capsule PO (21:00)
[2022-02-11] MEDS: MELATONIN 10 MG TABLET PO (21:00)
[2022-02-11 21:51] LABS: Bedside Glucose 186 mg/dL (74-106)
[2022-02-12] VITALS (9 sets, daily range): BP systolic 131–151; BP diastolic 62–89; PULSE 56–76; RESP 18–20; TEMP 36.6–36.8; O2SAT 93–95
[2022-02-12] MEDS: Insulin Lispro 100 UNIT/ML INSULN.PEN SC ×4 (05:55→23:16)
[2022-02-12 06:46] LABS: Bedside Glucose 197 mg/dL (74-106)
[2022-02-12 07:29] LABS: Absolute Lymphocyte Count 0.74 X10^3/uL (0.83-4.51); Basophil# 0.01 X10^3/uL; Basophil% 0.3 % (0-1); Eosinophil# 0.13 X10^3/uL; Eosinophils% 4.1 % (0-5); Hematocrit 39.7 % (40-54); Hemoglobin 12.8 g/dL (13.0-16.5); Lymphocyte # 0.74 X10^3/ul (0.83-4.51); Lymphocyte % 23.1 % (19-41); Mean Corp Hgb Conc 32.2 g/dL (32-36); Mean Corpuscular Hgb 28.3 pg (27.0-32.0); Mean Corpuscular Volume 87.8 fL (80-94); Mean Platelet Vol. 10.2 fl (6.2-12.0); Monocyte# 0.29 X10^3/uL; Monocyte% 9.1 % (0-10); NRBC Flagged by Analyzer 0 % (0-5); Neutrophil % 62.5 % (47-70); Platelet Count 170 K/mm3 (150-450); RBC Distribution Width CV 13.2 % (11.6-14.6); RBC Distribution Width SD 42.6 fl (35.1-43.9); Red Blood Count 4.52 M/mm3 (4.6-6.2); White Blood Count 3.2 K/mm3 (4.4-11.0)
[2022-02-12 08:07] LABS: ALB/GLOB Ratio 0.9 RATIO (0.9-2.4); AST(SGOT) 42 U/L (15-37); Alanine Aminotransfer ALT/SGPT 63 U/L (16-61); Albumin, Serum 2.8 g/dL (3.2-5.0); Alkaline Phosphatase 62 U/L (45-117); Anion Gap 6 (5-15); BUN 12 mg/dL (7-18); BUN/Creat Ratio 14.4 RATIO (10-20); Calcium,Total 8.5 mg/dL (8.5-10.1); Chloride 104 mmol/L (98-107); Creatinine, Serum 0.83 mg/dL (0.70-1.30); EST Glomerular Filtration Rate 96 mL/min (>60); Est Glom Filt Rate - Afr Amer 116 mL/min (>60); Estimated Creatinine Clearance 92.96 ml/min; Globulin 3.2 g/dL (2.2-4.2); Glucose 180 mg/dL (74-106); Potassium 3.6 mmol/L (3.5-5.1); Sodium Level 137 mmol/L (136-145)
[2022-02-12] MEDS: Oseltamivir Phosphate 75 MG Capsule PO ×2 (09:11→23:08)
[2022-02-12 12:46] LABS: Bedside Glucose 187 mg/dL (74-106)
--- NOTE | 2022-02-12 16:04 | PCM.PN.HOSP ---
Subjective Subjective Continues to improve, answers questions appropriately, no complaints today Objective Data Objective Data Vital Signs: Vital Signs Temp Pulse Resp BP Pulse Ox O2 Del Method O2 Flow Rate 98.1 F 68 18 150/62 H 94 Room Air 2 02/12/22 08:50 02/12/22 15:09 02/12/22 08:50 02/12/22 08:50 02/12/22 08:50 02/12/22 14:00 02/07/22 16:01 Oxygen Flow Rate (L/min) 2 Oxygen Delivery Method Room Air Weight: 109.8 kg Body Mass Index (BMI) 28.8 Intake & Output: Intake and Output for Last 24 Hours 02/10/22 02/11/22 02/12/22 23:59 23:59 23:59 Intake Total 1532.4 / 1532.4 880 / 1080 400 / 400 Output Total 1070 / 1070 200 / 200 250 / 250 Balance 462.4 / 462.4 680 / 880 150 / 150 Lab / Micro Data Result Diagrams: 02/12/22 06:31 02/12/22 06:31 Labs: Laboratory Results - last 24 hr 02/11/22 17:06: Magnesium 2.1 02/11/22 17:12: POC Glucose 180 H 02/11/22 20:58: POC Glucose 186 H 02/12/22 05:53: POC Glucose 197 H 02/12/22 06:31: WBC 3.2 L, RBC 4.52 L, Hgb 12.8 L, Hct 39.7 L, MCV 87.8, MCH 28.3, MCHC 32.2, RDW Std Deviation 42.6, RDW Coeff of [place] 13.2, Plt Count 170, MPV 10.2, Immature Gran % (Auto) 0.900, Neut % (Auto) 62.5, Lymph % (Auto) 23.1, [place] % (Auto) 9.1, Eos % (Auto) 4.1, Baso % (Auto) 0.3, Absolute Neuts (auto) 2.0, Absolute Lymphs (auto) 0.74 L, Nucleated RBC % 0 02/12/22 06:31: Sodium 137, Potassium 3.6, Chloride 104, Carbon Dioxide 27.0, Anion Gap 6, BUN 12, Creatinine 0.83, Estim Creat Clear Calc 92.96, Est GFR (MDRD) Af Amer 116, Est GFR (MDRD) Non-Af 96, BUN/Creatinine Ratio 14.4, Glucose 180 H, Calcium 8.5, Total Bilirubin 0.30, AST 42 H, ALT 63 H, Alkaline Phosphatase 62, C-React Prot Ext Range 29.50 H, Total Protein 6.0 L, Albumin 2.8 L, Globulin 3.2, Albumin/Globulin Ratio 0.9 02/12/22 12:23: POC Glucose 187 H Micro: Microbiology 02/10/22 10:00 Csf, Spinal Fluid Gram Stain - Final 02/10/22 10:00 Csf, Spinal Fluid CSF Culture - Preliminary No growth in 48 hours. 02/08/22 17:01 Blood Culture (Wb) - Anticubital Right Blood Culture - Preliminary No growth in 48 hours. 02/08/22 16:57 Blood Culture (Wb) - Left Hand Blood Culture - Preliminary No growth in 48 hours. 02/08/22 16:20 Urine, Clean Catch Urine Culture - Final Culture exhibits no growth. 02/09/22 10:10 Mucosa - Nasopharyngeal Respiratory Panel (PCR) - Final Influenza A (Subtype H3) 02/07/22 12:28 Nasal Secretion SARS-CoV-2 & FLU Antigen (Rapid) - Final Rhythm Strip Rhythm Strip: Sinus Rhythm Rate: 70 Ectopy: None Physical Exam Const alert Constitutional Narrative: Answering questions appropriately today, reading a book HEENT normocephalic and head/scalp atraumatic Eyes Eyes Narrative: EOM grossly intact, anicteric Neck supple Resp normal respiratory effort and clear to auscultation bilaterally Cardio regular rate and regular rhythm GI soft to palpation, non-tender and non-distended Extremity Extremity Narrative: No edema appreciated Neuro moves all extremities Neuro Narrative: Has some diffuse tremors, no overt focal deficits Psych Psych Narrative: Cooperative Assessment & Plan Assessment/Plan (1) Altered mental status: PLAN: Plan #Altered mental status Metabolic versus medication induced versus structural Had 1 brief episode on that lasted 30 minutes, and presently remains not oriented and confused but is awake and alert Brain CT only noted chronic changes Ammonia negative ESR within normal limits, CRP 12 B12 within normal limits as is folate and TSH UA with some blood but only mild leuk esterase and bacteria +1 no urinary symptoms, do not think he has a UTI Ethanol negative UDS positive for barbiturates but he does take primidone Is on donepezil so likely has underlying cognitive impairment but unclear to what extent Also takes nortriptyline, primidone, gabapentin?altered mental status could be contributed to polypharmacy though unclear if any of these were changed recently Family concerned as he does have a history of basal cell carcinoma with radiation and has had an chemo MRA was ordered EEG Neuro consult No focal deficits, do not think that this is an acute CVA Glucose was within normal limits on presentation and he was not hypoxic 02/08: Still remains very confused and far from baseline. CRP 12 but lab work-up thus far otherwise unremarkable, MRI only with chronic changes. Awaiting EEG. Did spike temperature, obtaining cultures, may account for his altered mental status given his history of probable mild cognitive impairment as he is on medication for this. UTI seems most likely source, will start Rocephin. Awaiting EEG and neurology results 02/09: Still spiking temperatures despite antibiotics. Cultures pending, given cough noted today we will get respiratory panel. If negative may need to broaden antibiotic coverage pending culture results. CRP was 12.3 yesterday and is 123 today, will need to continue to trend this. Awaiting EEG and neurology evaluation 02/10: Yesterday spoke with neurology and it was noted that his EEG was abnormal, given that with his significant spike in CRP as well as his fevers and normal cultures with complaints of headache neurology recommended LP and empiric antibiotics and acyclovir. ID also consulted. Overnight his respiratory panel resulted with flu a and he was placed on Tamiflu. CSF showed 0 white blood cells so antibiotics were stopped by infectious disease and they recommended continuing Tamiflu. Given his remarkably abnormal EEG, if he does not continue to improve or worsens neurology had recommended repeat EEG. We will assess in the a.m. and repeat EEG if necessary. Tremors are better back on primidone and Neurontin. 02/11: Mental status continues to improve however he still is slow to answer questions and there are some things he cannot answer, definitely not back at baseline and given conversation with neurology previously repeat EEG obtained. If this is normal and patient doing well tomorrow can likely work on discharge planning. All inflammatory markers are improving. Final spinal fluid studies are pending however 02/12: Continues to significantly improve, repeat EEG is actually normal. Has been working with physical therapy. We will touch base with family to assess how he is compared to baseline, will likely be able to work towards DC #Type 2 diabetes mellitus A1c 7.4 Holding oral hypoglycemics Glucose checks and sliding scale insulin #DVT ppx: Madhu, ALYSSAs Barbara Dexter MD Charges/Coding Visit Charges Inpatient E&M: 34673 Subs Hosp L2
[2022-02-12 16:36] LABS: Bedside Glucose 201 mg/dL (74-106)
[2022-02-12] MEDS: Gabapentin 300 MG Capsule PO (23:08)
[2022-02-12] MEDS: MELATONIN 10 MG TABLET PO (23:09)
[2022-02-12] MEDS: Primidone 50 MG Tablet 100 MG PO (23:09)
[2022-02-12] MEDS: 0.9% Saline Lock 10 ML Syringe IV ×2 (23:10→23:18)
[2022-02-12 23:40] LABS: Bedside Glucose 167 mg/dL (74-106)
[2022-02-13] VITALS (8 sets, daily range): BP systolic 125–138; BP diastolic 61–81; PULSE 59–80; RESP 18; TEMP 36.7–36.9; O2SAT 92–97
[2022-02-13 06:12] LABS: Absolute Lymphocyte Count 1.03 X10^3/uL (0.83-4.51); Basophil# 0.01 X10^3/uL; Basophil% 0.2 % (0-1); Eosinophils% 4.4 % (0-5); Hematocrit 40.3 % (40-54); Hemoglobin 13.5 g/dL (13.0-16.5); Lymphocyte # 1.03 X10^3/ul (0.83-4.51); Lymphocyte % 22.7 % (19-41); Mean Corp Hgb Conc 33.5 g/dL (32-36); Mean Corpuscular Hgb 28.9 pg (27.0-32.0); Mean Corpuscular Volume 86.3 fL (80-94); Mean Platelet Vol. 9.8 fl (6.2-12.0); Monocyte# 0.29 X10^3/uL; Monocyte% 6.4 % (0-10); NRBC Flagged by Analyzer 0 % (0-5); Neutrophil # 2.97 X10^3/uL (2.7-7.7); Neutrophil % 65.4 % (47-70); Platelet Count 177 K/mm3 (150-450); RBC Distribution Width CV 13.2 % (11.6-14.6); RBC Distribution Width SD 41.4 fl (35.1-43.9); Red Blood Count 4.67 M/mm3 (4.6-6.2); White Blood Count 4.5 K/mm3 (4.4-11.0)
[2022-02-13] MEDS: Insulin Lispro 100 UNIT/ML INSULN.PEN SC ×4 (06:21→20:57)
[2022-02-13 06:36] LABS: Anion Gap 7 (5-15); BUN 15 mg/dL (7-18); BUN/Creat Ratio 18.5 RATIO (10-20); Calcium,Total 8.5 mg/dL (8.5-10.1); Chloride 105 mmol/L (98-107); Creatinine, Serum 0.81 mg/dL (0.70-1.30); EST Glomerular Filtration Rate 99 mL/min (>60); Est Glom Filt Rate - Afr Amer 119 mL/min (>60); Estimated Creatinine Clearance 95.25 ml/min; Glucose 206 mg/dL (74-106); Potassium 3.7 mmol/L (3.5-5.1); Sodium Level 138 mmol/L (136-145)
[2022-02-13 07:25] LABS: Bedside Glucose 225 mg/dL (74-106)
[2022-02-13] MEDS: Oseltamivir Phosphate 75 MG Capsule PO ×2 (09:16→20:59)
[2022-02-13] MEDS: Enoxaparin 40 MG/0.4 ML Syringe SC (09:16)
[2022-02-13 12:10] LABS: Bedside Glucose 273 mg/dL (74-106)
--- NOTE | 2022-02-13 12:20 | PN.HOSP_ITS ---
Subjective Subjective Patient not sure if he knew who I was this morning, had a harder time answering questions and certainly more confused than previously Objective Data Objective Data Vital Signs: Vital Signs Temp Pulse Resp BP Pulse Ox O2 Del Method O2 Flow Rate 98.1 F 71 18 137/61 H 97 Room Air 2 02/13/22 09:25 02/13/22 09:25 02/13/22 09:25 02/13/22 09:25 02/13/22 09:25 02/13/22 09:25 02/07/22 16:01 Oxygen Flow Rate (L/min) 2 Oxygen Delivery Method Room Air Weight: 106.1 kg Body Mass Index (BMI) 28.8 Intake & Output: Intake and Output for Last 24 Hours 02/11/22 02/12/22 02/13/22 23:59 23:59 23:59 Intake Total 880 / 1080 400 / 400 Output Total 200 / 200 250 / 550 500 / 500 Balance 680 / 880 150 / -150 -500 / -500 Lab / Micro Data Result Diagrams: 02/13/22 05:25 02/13/22 05:25 Labs: Laboratory Results - last 24 hr 02/12/22 12:23: POC Glucose 187 H 02/12/22 16:10: POC Glucose 201 H 02/12/22 23:14: POC Glucose 167 H 02/13/22 05:25: WBC 4.5, RBC 4.67, Hgb 13.5, Hct 40.3, MCV 86.3, MCH 28.9, MCHC 33.5, RDW Std Deviation 41.4, RDW Coeff of Bradley 13.2, Plt Count 177, MPV 9.8, Immature Gran % (Auto) 0.900, Neut % (Auto) 65.4, Lymph % (Auto) 22.7, [place] % (Auto) 6.4, Eos % (Auto) 4.4, Baso % (Auto) 0.2, Absolute Neuts (auto) 3.0, Absolute Lymphs (auto) 1.03, Nucleated RBC % 0 02/13/22 05:25: Sodium 138, Potassium 3.7, Chloride 105, Carbon Dioxide 26.0, Anion Gap 7, BUN 15, Creatinine 0.81, Estim Creat Clear Calc 95.25, Est GFR (MDRD) Af Amer 119, Est GFR (MDRD) Non-Af 99, BUN/Creatinine Ratio 18.5, Glucose 206 H, Calcium 8.5 02/13/22 06:19: POC Glucose 225 H 02/13/22 11:41: POC Glucose 273 H Micro: Microbiology 02/10/22 10:00 Csf, Spinal Fluid Gram Stain - Final 02/10/22 10:00 Csf, Spinal Fluid CSF Culture - Final No growth in 72 hours. 02/08/22 17:01 Blood Culture (Wb) - Anticubital Right Blood Culture - Preliminary No growth in 48 hours. 02/08/22 16:57 Blood Culture (Wb) - Left Hand Blood Culture - Preliminary No growth in 48 hours. 02/08/22 16:20 Urine, Clean Catch Urine Culture - Final Culture exhibits no growth. 02/09/22 10:10 Mucosa - Nasopharyngeal Respiratory Panel (PCR) - Final Influenza A (Subtype H3) 02/07/22 12:28 Nasal Secretion SARS-CoV-2 & FLU Antigen (Rapid) - Final Rhythm Strip Rhythm Strip: Sinus Rhythm Rate: 70 Ectopy: None Physical Exam Const alert Constitutional Narrative: More confused today again HEENT normocephalic and head/scalp atraumatic Eyes Eyes Narrative: EOM intact, slight erythema on left eye but pupil equal and reactive Neck supple Resp normal respiratory effort and clear to auscultation bilaterally Cardio regular rate and regular rhythm GI soft to palpation, non-tender and non-distended Extremity Extremity Narrative: No edema appreciated Neuro moves all extremities Neuro Narrative: Has some diffuse tremors, no overt focal deficits Psych Psych Narrative: Cooperative Assessment & Plan Assessment/Plan (1) Altered mental status: PLAN: Plan #Altered mental status Metabolic versus medication induced versus structural Had 1 brief episode on that lasted 30 minutes, and presently remains not oriented and confused but is awake and alert Brain CT only noted chronic changes Ammonia negative ESR within normal limits, CRP 12 B12 within normal limits as is folate and TSH UA with some blood but only mild leuk esterase and bacteria +1 no urinary symptoms, do not think he has a UTI Ethanol negative UDS positive for barbiturates but he does take primidone Is on donepezil so likely has underlying cognitive impairment but unclear to what extent Also takes nortriptyline, primidone, gabapentin?altered mental status could be contributed to polypharmacy though unclear if any of these were changed recently Family concerned as he does have a history of basal cell carcinoma with radiation and has had an chemo MRA was ordered EEG Neuro consult No focal deficits, do not think that this is an acute CVA Glucose was within normal limits on presentation and he was not hypoxic 02/08: Still remains very confused and far from baseline. CRP 12 but lab work- up thus far otherwise unremarkable, MRI only with chronic changes. Awaiting EEG. Did spike temperature, obtaining cultures, may account for his altered mental status given his history of probable mild cognitive impairment as he is on medication for this. UTI seems most likely source, will start Rocephin. Awaiting EEG and neurology results 02/09: Still spiking temperatures despite antibiotics. Cultures pending, given cough noted today we will get respiratory panel. If negative may need to broaden antibiotic coverage pending culture results. CRP was 12.3 yesterday and is 123 today, will need to continue to trend this. Awaiting EEG and neurology evaluation 02/10: Yesterday spoke with neurology and it was noted that his EEG was abnormal, given that with his significant spike in CRP as well as his fevers and normal cultures with complaints of headache neurology recommended LP and empiric antibiotics and acyclovir. ID also consulted. Overnight his respiratory panel resulted with flu a and he was placed on Tamiflu. CSF showed 0 white blood cells so antibiotics were stopped by infectious disease and they recommended co ntinuing Tamiflu. Given his remarkably abnormal EEG, if he does not continue to improve or worsens neurology had recommended repeat EEG. We will assess in the a.m. and repeat EEG if necessary. Tremors are better back on primidone and Neurontin. 02/11: Mental status continues to improve however he still is slow to answer questions and there are some things he cannot answer, definitely not back at baseline and given conversation with neurology previously repeat EEG obtained. If this is normal and patient doing well tomorrow can likely work on discharge planning. All inflammatory markers are improving. Final spinal fluid studies are pending however 02/12: Continues to significantly improve, repeat EEG is actually normal. Has been working with physical therapy. We will touch base with family to assess how he is compared to baseline, will likely be able to work towards DC 02/13/2022: Yesterday had seemed to improve but this morning more confused and did not remember meeting me despite seeing him multiple times a day and him remembering previously. CRP is down compared to yesterday patient is worse, given the severity of his presentation and lack of definitive explanation neurology reconsulted for evaluation. Portion of the LP results are still pending. Had been on empiric antibiotics for meningitis after discussing with neurology previously but 0 WBCs and ID was on board and these have been discontinued but he had continued to prove in spite of that. Not having a headache or neck stiffness at this time, empiric antibiotics not resumed. Has not spiked another fever. Anti-NMDA receptor IgG ordered as a send out. This will likely not result quickly, if patient improves and is discharged prior to this would advise that he obtain access to his patient portal so that he can follow-up on these results with his neurologist. Discussed with his today #Type 2 diabetes mellitus A1c 7.4 Holding oral hypoglycemics Glucose checks and sliding scale insulin #DVT ppx: Madhu, Judit Dexter MD Charges/Coding Visit Charges Inpatient E&M: 82454 Subs Hosp L2
[2022-02-13 16:45] LABS: Bedside Glucose 247 mg/dL (74-106)
[2022-02-13] MEDS: 0.9% Saline Lock 10 ML Syringe IV (20:58)
[2022-02-13] MEDS: Gabapentin 300 MG Capsule PO (20:59)
[2022-02-13] MEDS: MELATONIN 10 MG TABLET PO (20:59)
[2022-02-13] MEDS: Primidone 50 MG Tablet 100 MG PO (20:59)
[2022-02-13 22:30] LABS: Bedside Glucose 226 mg/dL (74-106)
[2022-02-14] VITALS (9 sets, daily range): BP systolic 115–156; BP diastolic 56–89; PULSE 59–75; RESP 14–18; TEMP 36.5–37.6; O2SAT 92–95
[2022-02-14] MEDS: Insulin Lispro 100 UNIT/ML INSULN.PEN SC ×4 (06:23→22:00)
[2022-02-14 07:11] LABS: Bedside Glucose 204 mg/dL (74-106)
[2022-02-14 07:42] LABS: Absolute Lymphocyte Count 0.88 X10^3/uL (0.83-4.51); Absolute Neutrophil Count 3.5 X10^3/uL (2.0-7.7); Basophil# 0.02 X10^3/uL; Basophil% 0.4 % (0-1); Eosinophil# 0.19 X10^3/uL; Eosinophils% 3.8 % (0-5); Hematocrit 41.7 % (40-54); Hemoglobin 13.4 g/dL (13.0-16.5); Lymphocyte # 0.88 X10^3/ul (0.83-4.51); Lymphocyte % 17.4 % (19-41); Mean Corp Hgb Conc 32.1 g/dL (32-36); Mean Corpuscular Hgb 28.2 pg (27.0-32.0); Mean Corpuscular Volume 87.6 fL (80-94); Mean Platelet Vol. 9.8 fl (6.2-12.0); Monocyte# 0.37 X10^3/uL; Monocyte% 7.3 % (0-10); NRBC Flagged by Analyzer 0 % (0-5); Neutrophil % 69.1 % (47-70); Platelet Count 186 K/mm3 (150-450); RBC Distribution Width CV 13.3 % (11.6-14.6); Red Blood Count 4.76 M/mm3 (4.6-6.2); White Blood Count 5.1 K/mm3 (4.4-11.0)
[2022-02-14 08:14] LABS: ALB/GLOB Ratio 0.9 RATIO (0.9-2.4); AST(SGOT) 35 U/L (15-37); Alanine Aminotransfer ALT/SGPT 73 U/L (16-61); Albumin, Serum 2.9 g/dL (3.2-5.0); Alkaline Phosphatase 75 U/L (45-117); Anion Gap 3 (5-15); BUN 16 mg/dL (7-18); BUN/Creat Ratio 17.6 RATIO (10-20); Calcium,Total 8.8 mg/dL (8.5-10.1); Chloride 106 mmol/L (98-107); Creatinine, Serum 0.91 mg/dL (0.70-1.30); EST Glomerular Filtration Rate 86 mL/min (>60); Est Glom Filt Rate - Afr Amer 104 mL/min (>60); Estimated Creatinine Clearance 84.79 ml/min; Globulin 3.3 g/dL (2.2-4.2); Glucose 217 mg/dL (74-106); Potassium 3.8 mmol/L (3.5-5.1); Protein, Total 6.2 g/dL (6.4-8.2); Sodium Level 138 mmol/L (136-145)
[2022-02-14] MEDS: Enoxaparin 40 MG/0.4 ML Syringe SC (09:25)
[2022-02-14] MEDS: Oseltamivir Phosphate 75 MG Capsule PO ×2 (09:26→22:00)
[2022-02-14 12:10] LABS: Bedside Glucose 303 mg/dL (74-106)
[2022-02-14] MEDS: Glucerna Shake 120 ML LIQUID PO (16:43)
--- NOTE | 2022-02-14 17:08 | PN.HOSP_ITS ---
Subjective Subjective Follow-up on acute metabolic encephalopathy/acute influenza A/abnormal EEG: Patient was seen and examined. He is alert oriented x3. No acute events overnight. He remains off oxygen Objective Data Objective Data Vital Signs: Vital Signs Temp Pulse Resp BP Pulse Ox O2 Del Method O2 Flow Rate 98.4 F 75 14 124/71 H 94 Room Air 2 02/14/22 14:10 02/14/22 15:22 02/14/22 14:10 02/14/22 14:10 02/14/22 14:10 02/14/22 14:10 02/07/22 16:01 Oxygen Flow Rate (L/min) 2 Oxygen Delivery Method Room Air Weight: 105.5 kg Body Mass Index (BMI) 28.8 Intake & Output: Intake and Output for Last 24 Hours 02/12/22 02/13/22 02/14/22 23:59 23:59 23:59 Intake Total 400 / 400 300 / 300 650 / 650 Output Total 250 / 550 500 / 500 275 / 275 Balance 150 / -150 -200 / -200 375 / 375 Medical Nutrition Assessment Dietitian: Malnutrition Criteria Met Start: 02/14/22 14:48 Freq: Status: Active Protocol: Document 02/14/22 14:48 RMA (Rec: 02/14/22 14:48 RMA [id number]) Nutrition Malnutrition Evidence of Malnutrition Exists Yes Malnutrition (severe): Acute Illness/Injury,Chronic Evidenced By Suboptimal Energy Intake ( Severe),Weight Loss (Severe) Clinical Problem Chronic Disease or Condition Related Malnutrition Etiology Severe protein-calorie malnutrition in the context of chronic disease/debility related to inadequate oral intake Signs/Symptoms as evidenced by PO meeting less than 50% estimated nutrition needs and ~2-3% wt loss x 1 week Status Active Problem Unintended Weight Loss Etiology related to unknown etiology Signs/Symptoms as evidenced by 15.2lbs (5.9%) in unknown time period Status Active Problem Recommendation Dietitian Recommendations/Changes Continue 1999 calorie/ carbohydrate-controlled diet. Will add 120 ml glucerna shake TID w/ medpass as tolerated. Will try ensure pudding w/ lunch for tolerance. Lab / Micro Data Result Diagrams: 02/14/22 07:22 02/14/22 07:22 Labs: Laboratory Results - last 24 hr 02/13/22 20:56: POC Glucose 226 H 02/14/22 06:21: POC Glucose 204 H 02/14/22 07:22: WBC 5.1, RBC 4.76, Hgb 13.4, Hct 41.7, MCV 87.6, MCH 28.2, MCHC 32.1, RDW Std Deviation 42.0, RDW Coeff of Bradley 13.3, Plt Count 186, MPV 9.8, Immature Gran % (Auto) 2.000 H, Neut % (Auto) 69.1, Lymph % (Auto) 17.4 L, [place] % (Auto) 7.3, Eos % (Auto) 3.8, Baso % (Auto) 0.4, Absolute Neuts (auto) 3.5, Absolute Lymphs (auto) 0.88, Nucleated RBC % 0 02/14/22 07:22: Sodium 138, Potassium 3.8, Chloride 106, Carbon Dioxide 29.0, Anion Gap 3 L, BUN 16, Creatinine 0.91, Estim Creat Clear Calc 84.79, Est GFR (MDRD) Af Amer 104, Est GFR (MDRD) Non-Af 86, BUN/Creatinine Ratio 17.6, Glucose 217 H, Calcium 8.8, Total Bilirubin 0.40, AST 35, ALT 73 H, Alkaline Phosphatase 75, C-React Prot Ext Range 11.80 H, Total Protein 6.2 L, Albumin 2.9 L, Globulin 3.3, Albumin/Globulin Ratio 0.9 02/14/22 10:56: POC Glucose 303 H Micro: Microbiology 02/08/22 17:01 Blood Culture (Wb) - Anticubital Right Blood Culture - Final No growth in 5 days. 02/08/22 16:57 Blood Culture (Wb) - Left Hand Blood Culture - Final No growth in 5 days. 02/10/22 10:00 Csf, Spinal Fluid Gram Stain - Final 02/10/22 10:00 Csf, Spinal Fluid CSF Culture - Final No growth in 72 hours. 02/08/22 16:20 Urine, Clean Catch Urine Culture - Final Culture exhibits no growth. 02/09/22 10:10 Mucosa - Nasopharyngeal Respiratory Panel (PCR) - Final Influenza A (Subtype H3) 02/07/22 12:28 Nasal Secretion SARS-CoV-2 & FLU Antigen (Rapid) - Final Rhythm Strip Rhythm Strip: Sinus Rhythm Rate: 70 Ectopy: None Physical Exam Narrative Physical exam: General: Alert, Oriented x3, Cooperative, not on oxygen HEENT: Atraumatic Oral: Moist Mucosa Neck: Supple Lungs: Clear to auscultation Cardiovascular: HS I+II, regular, no murmurs Abdomen: Bowel Sounds Present, Soft, Non Tender Extremities: No edema Skin: No rashes, No breakdown Neurological: Grossly intact Psych/Mental Status: Appropriate Assessment & Plan Assessment/Plan (1) Acute encephalopathy: PLAN: Plan 1. Acute metabolic encephalopathy/abnormal EEG Work-up so far has been unremarkable -CT brain as well as MRI of the brain has been unremarkable. Ammonia, ESR, CRP, B12, folate, TSH,ethanol have been unremarkable Influenza A screen is positive, started on Tamiflu, will continue same Status post lumbar puncture, unremarkable analysis so far Urine, blood and CSF cultures are negative Urine drug screen positive for barbiturates but patient is on primidone Repeat SOC consult is pending 2. Type II DM DM, HbA1c 7.4, home hypoglycemics on hold, continue insulin sliding scale 3. DVT prophylaxis?Lovenox subcu Charges/Coding Visit Charges Inpatient E&M: 83138 Subs Hosp L2
[2022-02-14 17:31] LABS: Bedside Glucose 192 mg/dL (74-106)
--- NOTE | 2022-02-14 18:03 | NURSING ---
Phoned [facility] to inquire about consult. On list awaiting
[2022-02-14] MEDS: Gabapentin 300 MG Capsule PO (22:00)
[2022-02-14] MEDS: MELATONIN 10 MG TABLET PO (22:00)
[2022-02-14] MEDS: Primidone 50 MG Tablet 100 MG PO (22:00)
[2022-02-14 22:30] LABS: Bedside Glucose 188 mg/dL (74-106)
[2022-02-14] MEDS: Acetaminophen 325 MG Tablet 650 MG PO (22:50)
[2022-02-15 02:59] VITALS: PULSE 64
[2022-02-15 03:19] VITALS: BP 129/79; PULSE 68; RESP 18; TEMP 36.8; O2SAT 93
[2022-02-15 06:05] LABS: Absolute Lymphocyte Count 1.02 X10^3/uL (0.83-4.51); Absolute Neutrophil Count 2.6 X10^3/uL (2.0-7.7); Basophil# 0.04 X10^3/uL; Basophil% 0.9 % (0-1); Eosinophils% 4.6 % (0-5); Hematocrit 41.6 % (40-54); Hemoglobin 13.5 g/dL (13.0-16.5); Lymphocyte # 1.02 X10^3/ul (0.83-4.51); Lymphocyte % 23.2 % (19-41); Mean Corp Hgb Conc 32.5 g/dL (32-36); Mean Corpuscular Hgb 28.5 pg (27.0-32.0); Mean Corpuscular Volume 87.8 fL (80-94); Mean Platelet Vol. 10.2 fl (6.2-12.0); Monocyte# 0.34 X10^3/uL; Monocyte% 7.7 % (0-10); NRBC Flagged by Analyzer 0 % (0-5); Neutrophil # 2.61 X10^3/uL (2.7-7.7); Neutrophil % 59.5 % (47-70); Platelet Count 205 K/mm3 (150-450); RBC Distribution Width CV 13.3 % (11.6-14.6); RBC Distribution Width SD 42.5 fl (35.1-43.9); Red Blood Count 4.74 M/mm3 (4.6-6.2); White Blood Count 4.4 K/mm3 (4.4-11.0)
[2022-02-15 06:38] LABS: ALB/GLOB Ratio 0.9 RATIO (0.9-2.4); AST(SGOT) 24 U/L (15-37); Alanine Aminotransfer ALT/SGPT 69 U/L (16-61); Albumin, Serum 2.9 g/dL (3.2-5.0); Alkaline Phosphatase 75 U/L (45-117); Anion Gap 7 (5-15); BUN 17 mg/dL (7-18); BUN/Creat Ratio 18.8 RATIO (10-20); Calcium,Total 8.7 mg/dL (8.5-10.1); Chloride 105 mmol/L (98-107); EST Glomerular Filtration Rate 87 mL/min (>60); Est Glom Filt Rate - Afr Amer 105 mL/min (>60); Estimated Creatinine Clearance 85.73 ml/min; Globulin 3.3 g/dL (2.2-4.2); Glucose 216 mg/dL (74-106); Potassium 3.7 mmol/L (3.5-5.1); Protein, Total 6.2 g/dL (6.4-8.2); Sodium Level 139 mmol/L (136-145)
[2022-02-15] MEDS: Insulin Lispro 100 UNIT/ML INSULN.PEN SC ×2 (06:43→11:59)
[2022-02-15 07:10] LABS: Bedside Glucose 222 mg/dL (74-106)
[2022-02-15 07:18] VITALS: PULSE 75
[2022-02-15 08:42] VITALS: BP 99/72; PULSE 71; RESP 14; TEMP 36.7; O2SAT 93
[2022-02-15] MEDS: Glucerna Shake 120 ML LIQUID PO ×2 (08:47→11:54)
--- NOTE | 2022-02-15 10:37 | DCINST_ITS ---
Discharge Instructions Diet Discharge Diet: 2000 mg Sodium Diet Activity Discharge Activity: Return to Normal Activity Follow Up Care Test Results: Test results from this visit will be discussed in further detail at your follow- up appointment, if applicable. Discharge Plan Admission Admit Date/Time: 02/08/22 16:04 Primary Reason for Your Visit: Acute delirium/Acute influenza A Attending Provider: Wendy Mims Consulting Providers: Mickey Be ; Barbara Dexter Instructions Additional Instructions / Restrictions: Follow-up with your primary care doctor within 1 week Follow-up with neurology within 1 month Discharge Orders/Prescriptions Prescriptions: Continued atorvastatin 40 mg tablet 40 mg PO QHS primidone 50 mg tablet 100 mg PO QHS Label Comments: TAKE 3 TABLETS BY MOUTH TWICE A DAY glipizide 10 mg tablet 10 mg PO BID pioglitazone 45 mg tablet 45 mg PO QHS Label Comments: TAKE 1 TABLET BY MOUTH EVERY DAY tamsulosin 0.4 mg Capsule 0.8 mg PO DAILY metformin 1,000 mg tablet 1,000 mg PO BID Label Comments: TAKE 1 TABLET BY MOUTH TWICE A DAY gabapentin 300 mg Capsule 300 mg PO QHS lisinopril 40 mg Tablet 40 mg PO DAILY finasteride 5 mg Tablet 5 mg PO QHS Januvia 100 mg tablet 100 mg PO DAILY Label Comments: TAKE 1 TABLET BY MOUTH EVERY DAY donepezil 23 mg tablet 23 mg PO QHS Label Comments: TAKE 1 TABLET BY MOUTH EVERYDAY AT BEDTIME Discontinued nortriptyline 25 mg Capsule 25 mg PO QHS Referrals / Follow Up: Bernarda BRUNER [Other] Disposition Disposition (needs filled in before D/C Order can be placed): Home, Self Care
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
--- NOTE | 2022-02-15 12:08 | CASEMGMT ---
Patient to discharge home with walker. Script received and referral sent to [facility] via [facility]. Patient to be provided FWW from [employer] stock when family arrives.
[2022-02-15 12:45] LABS: Bedside Glucose 254 mg/dL (74-106)
--- NOTE | 2022-02-15 13:00 | PHA.DC.MR ---
Pharmacy Service has performed discharge medication reconciliation for this patient. The patient's discharge medication list was reviewed for discrepancies and discrepancies were resolved. Home Medications atorvastatin 40 mg tablet 40 mg PO QHS 02/07/22 donepezil 23 mg tablet 23 mg PO QHS 02/07/22 finasteride 5 mg tablet 5 mg PO QHS 02/07/22 gabapentin 300 mg capsule 300 mg PO QHS 02/07/22 glipizide 10 mg tablet 10 mg PO BID 02/07/22 lisinopril 40 mg tablet 40 mg PO DAILY 02/07/22 metformin 1,000 mg tablet 1,000 mg PO BID 02/07/22 pioglitazone 45 mg tablet 45 mg PO QHS 02/07/22 primidone 50 mg tablet 100 mg PO QHS 02/07/22 sitagliptin phosphate 100 mg tablet (Ankushuvia) 100 mg PO DAILY 02/07/22 tamsulosin 0.4 mg capsule 0.8 mg PO DAILY 02/07/22
[2022-02-15 15:20] VITALS: BP 129/79; PULSE 72; RESP 16; TEMP 36.6; O2SAT 97
== END 2022-02-15 17:17 | disposition home or self-care (01) | DRG 865 ==
LOC: ED 14:59 → PCU 17:31
PROVIDERS: Admitting Provider Internal Medicine; Emergency Provider Emergency Medicine; Visit Provider Internal Medicine
DX: J10.81 Influenza due to other identified influenza virus with encephalopathy (principal); E43 Unspecified severe protein-calorie malnutrition; G93.41 Metabolic encephalopathy; E11.9 Type 2 diabetes mellitus without complications; Z79.84 Long term (current) use of oral hypoglycemic drugs; Z92.21 Personal history of antineoplastic chemotherapy; Z68.28 Body mass index [BMI] 28.0-28.9, adult
CPT/HCPCS: 36415; 62328; 70450; 70553; 71046; 80048; 80053; 80307; 81001; 82077; 82140; 82607; 82746; 82945; 82962; 83036; 83735; 83880; 84157; 84443; 84484; 85025; 85610; 85652; 85730; 86140; 87040; 87070; 87086; 87205; 87428; 87498; 87529; 87633; 87798; 88108; 88313; 89050; 89051; 93005; 95819; 97116; 97162; 97166; 97530; 97535; 97803; 99251; 99285; A9575; J7030; J7040; A4216; G0463; J0696